=== PATIENT | male | born 1995 | race Caucasian/White ===

== ENCOUNTER 2023-03-26 17:09 | Emergency (ER) | payer OTHER, SELFPAY ==
[2023-03-26 17:11] VITALS: BP 133/93; PULSE 79; RESP 16; TEMP 36.8; O2SAT 99; BMI 21.1
--- NOTE | 2023-03-26 17:20 | ED.SKABFB1 ---
Documented by User: [email or web address] Ahuja 03/26/23 17:30 HPI - Skin/Abscess/Foreign Bdy General Chief complaint: Skin/Abscess/Foreign Body Stated complaint: LT LEG BOIL Time Seen by Provider: 03/26/23 17:12 Source: patient Mode of arrival: walk-in Limitations: no limitations History of Present Illness HPI narrative: patient is a 27-year-old male presents to the Emergency Room with concerns of abscess and cellulitis to the left anterior maxwell. Patient denies fever or chills, denies history of diabetes. Patient states he developed a pimple earlier in the week on his left anterior maxwell, has a history of eczema. States he popped it with minimal drainage but area has not cleared up yet, he is concerned with redness surrounding it and his dry skin/eczema to the anterior maxwell. Patient denies a history of abscesses in the past. He appears in no distress. Has been using topical Neosporin without relief. Related Data Previous Rx's Medication Instructions Recorded doxycycline hyclate 100 mg capsule 100 mg PO BID 7 days #14 caps 03/26/23 Allergies Allergy/AdvReac Type Severity Reaction Status Date / Time No Known Drug Allergies Allergy Verified 03/26/23 17:14 Review of Systems ROS Constitutional Denies: fever or chills Ears, nose, mouth, and throat Denies: throat pain or neck pain Cardiovascular Denies: chest pain Respiratory Denies: shortness of breath Gastrointestinal Denies: abdominal pain, nausea or vomiting Musculoskeletal Reports: other (localized tenderness to left anterior maxwell); Denies: back pain or neck pain Integumentary/Breast Reports: skin tenderness Neurological Denies: headache Psychiatric Denies: anxiety Hematologic/Lymphatic Denies: easy bruising Exam Narrative Exam Narrative: Nurses notes and vital signs reviewed and patient is not hypoxic. General: The patient appears well and in no apparent distress. Patient is resting comfortably on cart. Skin: Warm, dry, no pallor noted. dry skin bilateral anterior shins, left anterior maxwell with a nickel-sized area of erythema surrounding a central pustule that appears to have opened, no active drainage. Minimal induration no fluctuance. No evidence of streaking, but area is adjacent to dry skin to the anterior maxwell which patient notes is his baseline eczema. He is minimal involvement of the right anterior maxwell. No tenderness to the knee or ankle joint Head: Normocephalic, atraumatic Neck: Supple, trachea mid-line, no tenderness, no lymphadenopathy Eye: Pupils are equal, round and reactive to light, EOMI Ears, Nose, Mouth, and Throat: external exam unremarkable Cardiovascular: Regular Rate and Rhythm Respiratory: Patient is in no distress, no accessory muscle use, lungs are clear to auscultation, no wheezing, rales or rhonchi. Musculoskeletal: normal ROM, no tenderness, no swelling, no joint pain warmth or erythema, localized tenderness to abscess with cellulitis to left anterior maxwell. Neurological: A&O x4 Psychiatric: Cooperative Constitutional Vital Signs, click to edit/add: Last Vital Signs Temp 98.2 F 03/26/23 17:11 Pulse 79 03/26/23 17:11 Resp 16 03/26/23 17:11 BP 133/93 H 03/26/23 17:11 Pulse Ox 99 03/26/23 17:11 Course Vital Signs Vital signs: Vital Signs Temperature 98.2 F 03/26/23 17:11 Pulse Rate 79 03/26/23 17:11 Respiratory Rate 16 03/26/23 17:11 Blood Pressure 133/93 H 03/26/23 17:11 Pulse Oximetry 99 03/26/23 17:11 Temperature 98.2 F 03/26/23 17:11 Pulse Rate 79 03/26/23 17:11 Respiratory Rate 16 03/26/23 17:11 Blood Pressure 133/93 H 03/26/23 17:11 Pulse Oximetry 99 03/26/23 17:11 MDM - Skin/Abscess/Foreign Bdy MDM Narrative Medical decision making narrative: discussed patient's presentation, localized abscess with cellulitis left anterior maxwell, patient using topical Neosporin which may be contributing to the persistent erythema surrounding. Recommend he switched to bacitracin for the dry skin covering the anterior shins. Given the skin irritation on both shins with evidence of abscess and cellulitis on the medial maxwell we will start doxycycline with risks and benefits discussed. Patient will do warm compresses. Return to the Emergency Room if symptoms worsen or new symptoms develop. Patient will use precaution when in the sun. He has fair skin, antibiotic use discussed The patient is to followup with primary care physician in next 3-5 days or to return to the emergency department should any of the signs or symptoms worsen or new symptoms develop. Patient had questions answered. The patient agrees with the following Diagnosis and Treatment plan and the patient will be discharged home. Discharge Plan Discharge Chief Complaint: Skin/Abscess/Foreign Body Clinical Impression: Abscess of skin or subcutaneous tissue, Cellulitis Patient Disposition: Home, Self-Care Time of Disposition Decision: 17:20 Condition: Good Prescriptions / Home Meds: New doxycycline hyclate 100 mg capsule 100 mg PO BID 7 Days Qty: 14 0RF Instructions: Cellulitis (ED), Abscess (ED) Additional Instructions: recommend warm compresses, topical bacitracin [id number] if needed to anterior maxwell, keep area clean and dry and covered. May do warm soaks with Epsom salts. Keep out of sun light with antibiotic use. Follow-up with family doctor in 3-5 days Stand Alone Forms: Portal Instructions Referrals: Shaikh Stringer MD [Physician] - 03/29/23 Discharge Date/Time: 03/26/23 17:37 Documented by User: Edmond Crook 03/26/23 19:01 HPI - Skin/Abscess/Foreign Bdy General Chief complaint: Skin/Abscess/Foreign Body Stated complaint: LT LEG BOIL Time Seen by Provider: 03/26/23 17:12 Related Data Previous Rx's Medication Instructions Recorded doxycycline hyclate 100 mg capsule 100 mg PO BID 7 days #14 caps 03/26/23 Allergies Allergy/AdvReac Type Severity Reaction Status Date / Time No Known Drug Allergies Allergy Verified 03/26/23 17:14 Exam Constitutional Vital Signs, click to edit/add: Last Vital Signs Temp 98.2 F 03/26/23 17:11 Pulse 79 03/26/23 17:11 Resp 16 03/26/23 17:11 BP 133/93 H 03/26/23 17:11 Pulse Ox 99 03/26/23 17:11 Course Vital Signs Vital signs: Vital Signs Temperature 98.2 F 03/26/23 17:11 Pulse Rate 79 03/26/23 17:11 Respiratory Rate 16 03/26/23 17:11 Blood Pressure 133/93 H 08/20/23 17:11 Pulse Oximetry 99 03/26/23 17:11 Temperature 98.2 F 03/26/23 17:11 Pulse Rate 79 03/26/23 17:11 Respiratory Rate 16 03/26/23 17:11 Blood Pressure 133/93 H 03/26/23 17:11 Pulse Oximetry 99 03/26/23 17:11 MDM - Skin/Abscess/Foreign Bdy MDM Narrative Medical decision making narrative: discussed patient's presentation, localized abscess with cellulitis left anterior maxwell, patient using topical Neosporin which may be contributing to the persistent erythema surrounding. Recommend he switched to bacitracin for the dry skin covering the anterior shins. Given the skin irritation on both shins with evidence of abscess and cellulitis on the medial maxwell we will start doxycycline with risks and benefits discussed. Patient will do warm compresses. Return to the Emergency Room if symptoms worsen or new symptoms develop. Patient will use precaution when in the sun. He has fair skin, antibiotic use discussed The patient is to followup with primary care physician in next 3-5 days or to return to the emergency department should any of the signs or symptoms worsen or new symptoms develop. Patient had questions answered. The patient agrees with the following Diagnosis and Treatment plan and the patient will be discharged home. For this patient encounter I reviewed the mid-level provider?s documentation, medical decision-making and treatment plan, and I personally spent time with this patient. Shared APC visit, physician attestation: [id number]: The visit was performed by both a physician and an APC. I performed all aspects of MDM as documented. DO August Discharge Plan Discharge Chief Complaint: Skin/Abscess/Foreign Body Clinical Impression: Abscess of skin or subcutaneous tissue, Cellulitis Patient Disposition: Home, Self-Care Time of Disposition Decision: 17:20 Condition: Good Prescriptions / Home Meds: New doxycycline hyclate 100 mg capsule 100 mg PO BID 7 Days Qty: 14 0RF Instructions: Cellulitis (ED), Abscess (ED) Additional Instructions: recommend warm compresses, topical bacitracin [id number] if needed to anterior maxwell, keep area clean and dry and covered. May do warm soaks with Epsom salts. Keep out of sun light with antibiotic use. Follow-up with family doctor in 3-5 days Stand Alone Forms: Portal Instructions Referrals: Shaikh Stringer MD [Physician] - 03/29/23 Discharge Date/Time: 03/26/23 17:37
[2023-03-26] MEDS: DOXYCYCLINE MONOHYDRATE 100 MG CAPSULE PO (17:30)
== END 2023-03-26 17:37 | disposition home or self-care (01) ==
PROVIDERS: Emergency Provider Emergency Medicine
DX: L03.116 Cellulitis of left lower limb (principal); L02.416 Cutaneous abscess of left lower limb
CPT/HCPCS: 99283